=== PATIENT | female | born 1955 | race Two or more races ===

== ENCOUNTER → 2021-07-14 12:54 | Outpatient (BNVA) | payer MEDICARE, MEDICAID, SELFPAY | PROVIDERS: Visit Provider Physician Assistant Surgical | DX: Z13.89 Encounter for screening for other disorder (principal) ==

== ENCOUNTER → 2021-07-22 13:04 | Outpatient (BNVA) | payer MEDICARE, MEDICAID, SELFPAY | PROVIDERS: Referring Provider Nurse Practitioner Community Health; Visit Provider Physician Assistant Surgical | DX: E66.9 Obesity, unspecified (principal); Z68.37 Body mass index [BMI] 37.0-37.9, adult | CPT/HCPCS: 99202 ==

== ENCOUNTER 2021-08-02 08:26 | Outpatient (REF) | payer MEDICARE, MEDICAID, SELFPAY ==
--- NOTE | ~2021-08-02 | XR_ITS ---
EXAMINATION: XR CHEST 2 VIEWS CLINICAL INFORMATION: Obesity. COMPARISON: None. TECHNIQUE: Frontal and lateral views of the chest were obtained. FINDINGS: The heart, great vessels, pulmonary vasculature and mediastinum are normal. The lungs show no focal infiltrate, effusion or pneumothorax. There is no acute osseous abnormality. XR/XR chest 2V IMPRESSION: No active cardiopulmonary disease.
--- NOTE | 2021-08-02 09:30 | ECG_ITS ---
Test Reason : e66.9 Blood Pressure : / mmHG Vent. Rate : 072 BPM Atrial Rate : 072 BPM P-R Int : 192 ms QRS Dur : 100 ms QT Int : 382 ms P-R-T Axes : 035 -14 015 degrees QTc Int : 418 ms Normal sinus rhythm Moderate voltage criteria for LVH, may be normal variant ( R in aVL , Shawn product ) Possible Anterior infarct , age undetermined Abnormal ECG No previous ECGs available Referred By: Conor Duff Electronically Signed By:JAYANT GO MD
[2021-08-02 09:55] LABS: MANUAL DIFF FLAG NO
[2021-08-02 10:16] LABS: Basophils Percent Auto 0.6 % (0-2); Eosinophils Absolute Auto 0.2 X10*3/uL (0.0-0.4); Eosinophils Percent Auto 3.8 % (0-4); Hematocrit 42.1 % (37.0-47.0); Hemoglobin 13.8 g/dl (12.0-16.0); Imm Gran Abs Auto 0.01 X10*3/uL (0.00-0.03); Imm Gran Pct Auto 0.2 % (0.0-0.4); Lymphocytes Absolute Auto 2.3 X10*3/uL (1.2-4.9); Lymphocytes Percent Auto 43.5 % (20-40); Mean Corpuscular HGB Conc 32.8 g/dl (31.0-35.0); Mean Corpuscular Hemoglobin 31.5 pg (27.0-33.0); Mean Corpuscular Volume 96.1 fL (80.0-98.0); Monocytes Absolute Auto 0.4 X10*3/uL (0.1-1.2); Monocytes Percent Auto 8.3 % (2-11); Neutrophils Absolute Auto 2.3 x10*3/uL (2.0-8.3); Neutrophils Percent Auto 43.6 % (45-73); Platelet Count 193 X10*3/uL (160-400); Red Blood Count 4.38 X10*6/uL (4.20-5.50); Red Cell Distribution Width 13.6 % (11.0-16.0); White Blood Count 5.3 X10*3/uL (4.8-10.8)
[2021-08-02 10:48] LABS: Alanine Aminotransferase 86 U/L (0-31); Albumin Level 4.4 g/dL (3.5-5.0); Alkaline Phosphatase 126 U/L (39-117); Anion Gap 14 (12-20); Aspartate Amino Transferase 80 U/L (5-31); Bilirubin Total 0.4 mg/dL (0.0-1.0); Blood Urea Nitrogen 23 mg/dL (9-16); C Reactive Protein 0.91 mg/dL (< or = 0.50); Carbon Dioxide 25 mmol/L (22-29); Chloride 103 mmol/L (96-108); Cholesterol 223 mg/dL; Estimated Glomerular Filt Rate 32; Glucose Random 108 mg/dL (60-115); HDL Cholesterol 45 mg/dL; Iron 92 mcg/dL (30-160); LDL Cholesterol Calculated 139 mg/dl; Percent Iron Saturation 25 % (15-50); Potassium 4.3 mmol/L (3.3-5.1); Sodium 138 mmol/L (135-145); Total Iron Binding Capacity 368 mcg/dL (228-428); Total Protein 8.5 g/dL (6.5-8.0); Triglycerides 198 mg/dL; Unsaturated Iron Binding 276 ug/dL
[2021-08-02 10:51] LABS: Estimated Average Glucose 126 mg/dL
[2021-08-02 10:53] LABS: Calcium 11.2 mg/dL (8.4-10.2)
[2021-08-02 11:09] LABS: Ferritin 228 ng/mL (10-250); Insulin 28 uU/mL (2-29); TSH reflex Free T4 2.94 uIU/mL (0.32-4.0); Vitamin D 25-OH Total 24.8 ng/mL (>30)
[2021-08-02 11:22] LABS: Folate 16.5 ng/mL (> or = 4.0); Vitamin B12 729 pg/mL (200-900)
[2021-08-03 12:44] LABS: H Pylori Breath Test Negative (Negative)
[2021-08-04 14:46] LABS: Calcium (PTHI) 11.2 mg/dL (8.6-10.4); PTHI 81 pg/mL (16-77)
[2021-08-07 15:32] LABS: Zinc 67 mcg/dL (60-130)
[2021-08-08 04:41] LABS: Vitamin B1 11 nmol/L (8-30)
[2021-08-08 12:40] LABS: Vitamin A 45 mcg/dL (38-98)
== END 2021-08-02 08:27 | disposition home or self-care (01) ==
LOC: HO.XRAY 08:26
PROVIDERS: Absent Provider Physician Assistant Surgical; Visit Provider Surgery
DX: Z01.818 Encounter for other preprocedural examination (principal); Z11.0 Encounter for screening for intestinal infectious diseases; E66.9 Obesity, unspecified
CPT/HCPCS: 36415; 71046; 80053; 80061; 82306; 82607; 82728; 82746; 83013; 83036; 83525; 83540; 83970; 84425; 84443; 84590; 84630; 85025; 86140; 93005; 99211

== ENCOUNTER → 2021-08-12 08:23 | Outpatient (REF) | payer MEDICARE, MEDICAID, SELFPAY ==
--- NOTE | 2021-08-12 08:27 | CA_ITS ---
Acquisition Time: 2021-08-12 08:34:46 Total Exercise Time: 00:05:01 Test Indications: ABNORMAL EKG, OBESITY Medications: LISINOPRIL/HCTZ MELATONIN Protocol: ANGÉLICA Max HR: 136 BPM 88% of Pred: 154 BPM Max BP: 170/090 mmHG Max Work Load: 7.0 METS Exercise stress test with exercise 5 min 1 sec of Angélica protocol, acheiving 88% MPHR, with mild sob, no chest discomfort, with isolated PVC, with normotensive response to exercise, with nonspecific ST abnormaly at baseline and in recovery, without EKG changes meeting criteria for ischemia with exercise. Test reviewed with Dr Tilley. Referred By: Conor Duff Overread By: ODESSA CHEN
== END ==
LOC: HO.CARD 08:23
PROVIDERS: Visit Provider Physician Assistant Surgical
DX: R94.31 Abnormal electrocardiogram [ECG] [EKG] (principal); E66.9 Obesity, unspecified
CPT/HCPCS: 93017

== ENCOUNTER → 2021-08-24 10:54 | Outpatient (BNVA) | payer MEDICARE, MEDICAID, SELFPAY | PROVIDERS: Visit Provider Physician Assistant Surgical | DX: E66.9 Obesity, unspecified (principal); Z68.37 Body mass index [BMI] 37.0-37.9, adult | CPT/HCPCS: 99212 ==